=== PATIENT | female | born 1930 | race Caucasian/White ===

== ENCOUNTER → 2017-05-09 | Outpatient (CLI) | payer OTHER ==
[~2017-05-09] MED LIST: ATEN50TA PO; HYDR25TA PO; IMIP50TA6 PO; LOSA50TA37 PO; METF500T4 PO; OLAN5TAB2 PO
== END | disposition home or self-care (01) ==
LOC: RADPV 10:23
PROVIDERS: ATTEND Family Medicine
DX: M17.12 Unilateral primary osteoarthritis, left knee (principal)